=== PATIENT | female | born 1990 | race Two or more races ===

== ENCOUNTER 2017-10-11 12:18 | Emergency (ER) | payer MEDICAID ==
[~2017-10-11] VITALS: Ht 172.7 cm; Wt 104.3 kg
[~2017-10-11 12:18] MED LIST: ACYCLOVIR400 MG ORAL; METHYLDOPA250 MG PO; NKM
[2017-10-11 12:30] VITALS: BP 148/74
[2017-10-11] MEDS ORDERED: IBUPROFEN600 MG ORAL (13:07)
[2017-10-11 13:12] VITALS: BP 155/75
--- NOTE | 2017-10-11 21:36 | Emergency Room Report ---
History of Present Illness General Chief Complaint: Pain Source: Patient Present Illness HPI The patient is a 27-year-old female presenting for left heel pain. she states that this has been ongoing for the past one month. She denies any known injury to the area. She does admit to walking a lot at work. She denies any new footwear. Pain has progressively been getting worse and is now a 10 out of 10 dull ache. Does not radiate. Worse with walking. She denies other symptoms including numbness or tingling, calf pain, rash Allergies: Coded Allergies: No Known Allergies (Unverified , 08/05/13) Patient History Past Medical History: see triage record Pertinent Family History: none Reviewed Nursing Documentation: PMH: Agreed, PSxH: Agreed Nursing Documentation-PMH Hx Hypertension: Yes Review of Systems All Other Systems: negative except mentioned in HPI Physical Exam Vital Signs Date Time Temp Pulse Resp B/P (MAP) Pulse Ox O2 Delivery O2 Flow Rate FiO2 10/11/17 12:20 97.9 99 20 155/75 98 Room Air Sp02 EP Interpretation: reviewed, normal General Appearance: no apparent distress, alert, GCS 15, non-toxic Head: normocephalic, atraumatic Eyes: bilateral eye normal inspection, bilateral eye PERRL ENT: hearing grossly normal, normal voice Musculoskeletal: back normal, gait/station normal, normal range of motion, tender - TTP over the L calcaneus Neurologic: alert, oriented x3, responsive, motor strength/tone normal, sensory intact, speech normal Psychiatric: judgement/insight normal, memory normal, mood/affect normal, no suicidal/homicidal ideation Skin: normal color, no rash, warm/dry, well hydrated Medical Decision Making PA Attestation Dr. Prince is my supervising physician. Patient management was discussed with my supervising physician Diagnostic Impression: Primary Impression: Plantar fasciitis ER Course The patient is a 27-year-old female presenting for left heel pain. Ddx considered include but not limited to sprain/strain, fracture, contusion, plantar fasciitis, heel spur PE: NAD TTP over the L calcaneus. No edema. No skin changes. SILT. Full AROM of ankle intact. X-ray of the left foot is unremarkable Patient discharged home with prescription for pain medication and was given information including using ice, resting, orthotics FU with PMD Other X-Ray Diagnostic Results Other X-Ray Diagnostic Results : X-Ray ordered: L foot # of Views/Limited Vs Complete: 3 View Indication: Pain EP Interpretation: Yes PA Xray: Interpretation reviewed, by supervising MD, and agrees with findings. Interpretation: no dislocation, no soft tissue swelling, no fractures Impression: No acute disease Electronically Signed by: Osmar Johnson PA-C Last Vital Signs Date Time Temp Pulse Resp B/P (MAP) Pulse Ox O2 Delivery O2 Flow Rate FiO2 10/11/17 13:12 97.9 82 18 155/75 98 Room Air Status: improved Disposition: HOME, SELF-CARE Condition: Improved Scripts Ibuprofen* (MOTRIN*) 600 Mg Tablet 600 MG ORAL Q8H Y for For Pain, #30 TAB 0 Refills Prov: OSMAR JOHNSON 10/11/17 Referrals: NOT CHOSEN [facility]/,REFERRING (PCP) Patient Instructions: Plantar Fasciitis, RICE for Routine Care of Injuries Additional Instructions: I discussed my findings with the patient. All questions and concerns have been answered. Treatment and medication compliance have been addressed. I advised the patient that they need to follow up with PMD in 3-5 days. Return to ED if pain remains or worsens, numbness or tingling occurs, new rash is noticed, fever is noticed, or if needed for any reason. Patient verbalized understanding of discharge instructions. OSMAR JOHNSON Oct 11, 2017 21:36
--- NOTE | 2017-10-12 10:54 | Diagnostic Imaging Report ---
Indication: Pain Comparison: None Findings: 3 views of the left foot were obtained. No acute fractures, malalignment, erosions or periostitis are identified. Plantar calcaneal spur noted. Soft tissues are unremarkable. Impression: No acute findings
== END 2017-10-11 13:12 | disposition home or self-care (01) ==
LOC: EMR 12:30
DX: M72.2 Plantar fascial fibromatosis (principal); I10 Essential (primary) hypertension
CPT/HCPCS: 99283

== ENCOUNTER 2018-12-13 14:17 | Emergency (ER) | payer MEDICAID ==
[~2018-12-13] VITALS: Ht 180.3 cm; Wt 113.4 kg
[~2018-12-13 14:17] MED LIST changes: +IBUPROFEN600 MG ORAL
[2018-12-13 14:25] VITALS: BP 146/78
--- NOTE | 2018-12-13 14:30 | NUR ---
ED Nurse Note: Patient walked in to ED c/o left upper lip bump for 2 days. per pt, pt had dry cough and fever before bump.
--- NOTE | 2018-12-13 15:25 | Emergency Room Report ---
History of Present Illness General Chief Complaint: Skin Rash/Abscess Source: Medical Record Present Illness HPI 28-year-old female presents emergency department complaining of 2/10 in severity painful "burning" blisters on the left side of the upper lip 2 days that have been progressive. Patient also reports some paresthesias in that area she states she recently had some upper respiratory symptoms and describes having a cough, nasal congestion and rhinorrhea. Patient reports he had subjective fevers and chills that have been resolving. She denies history of immunocompromise she denies history of STI or herpes. Patient denies history of cold sores in the past. Pt. denies fevers, chills or swollen tender lymph nodes. Denies lesions/rashes elsewhere on the body. Denies new medications or body washes or creams. Denies swelling of the lips, tongue , throat or airway. Denies wheezing, or shortness of breath. Denies recent travel, recent illness or ill contacts. denies blisters, oral lesions, or sloughing of the skin Allergies: Coded Allergies: No Known Allergies (Unverified , 08/05/13) Patient History Past Medical History: see triage record Past Surgical History: none Pertinent Family History: none Last Menstrual Period: 11/18/18 Now: No Reviewed Nursing Documentation: PMH: Agreed; PSxH: Agreed Nursing Documentation-PMH Past Medical History: No History, Except For Hx Hypertension: Yes Review of Systems All Other Systems: negative except mentioned in HPI Physical Exam Vital Signs Date Time Temp Pulse Resp B/P (MAP) Pulse Ox O2 Delivery O2 Flow Rate FiO2 12/13/18 14:20 99.0 84 18 146/78 97 Room Air Sp02 EP Interpretation: reviewed, normal General Appearance: no apparent distress, alert, GCS 15, non-toxic Head: normocephalic, atraumatic Eyes: bilateral eye normal inspection, bilateral eye PERRL ENT: hearing grossly normal, normal voice, other Neck: full range of motion Respiratory: chest non-tender, lungs clear, normal breath sounds, speaking full sentences Cardiovascular #1: regular rate, rhythm Musculoskeletal: gait/station normal, normal range of motion, non-tender Neurologic: alert, oriented x3, responsive, motor strength/tone normal, sensory intact, speech normal, grossly normal Psychiatric: judgement/insight normal Skin: normal color, warm/dry, well hydrated, rash Medical Decision Making PA Attestation Dr. kyle is my supervising Physician whom patient management has been discussed with. Diagnostic Impression: Primary Impression: Cold sore ER Course 28-year-old female presents emergency department complaining of 2/10 in severity painful "burning" blisters on the left side of the upper lip 2 days that have been progressive. Patient also reports some paresthesias in that area she states she recently had some upper respiratory symptoms and describes having a cough, nasal congestion and rhinorrhea. Patient reports he had subjective fevers and chills that have been resolving. She denies history of immunocompromise she denies history of STI or herpes. Patient denies history of cold sores in the past. Pt. denies fevers, chills or swollen tender lymph nodes. Denies lesions/rashes elsewhere on the body. Denies new medications or body washes or creams. Denies swelling of the lips, tongue , throat or airway. Denies wheezing, or shortness of breath. Denies recent travel, recent illness or ill contacts. denies blisters, oral lesions, or sloughing of the skin Ddx considered but are not limited to mucositis, herpes simplex, HFM, SJS, Vital signs: are WNL, pt. is afebrile H&PE are most consistent with herpes simplex no evidence of secondary infection. ORDERS: none required at this time, the diagnosis is clinical ED INTERVENTIONS: None required at this time. DISCHARGE: At this time pt. is stable for d/c to home. Will provide printed patient care instructions, and any necessary prescriptions. Care plan and follow up instructions have been discussed with the patient prior to discharge. 28-year-old female presents emergency department complaining of 2/10 in severity painful "burning" blisters on the left side of the upper lip 2 days that have been progressive. Patient also reports some paresthesias in that area she states she recently had some upper respiratory symptoms and describes having a cough, nasal congestion and rhinorrhea. Patient reports he had subjective fevers and chills that have been resolving. She denies history of immunocompromise she denies history of STI or herpes. Patient denies history of cold sores in the past. Pt. denies fevers, chills or swollen tender lymph nodes. Denies lesions/rashes elsewhere on the body. Denies new medications or body washes or creams. Denies swelling of the lips, tongue , throat or airway. Denies wheezing, or shortness of breath. Denies recent travel, recent illness or ill contacts. denies blisters, oral lesions, or sloughing of the skin Last Vital Signs Date Time Temp Pulse Resp B/P (MAP) Pulse Ox O2 Delivery O2 Flow Rate FiO2 12/13/18 14:20 99.0 84 18 146/78 97 Room Air Disposition: HOME, SELF-CARE Condition: Stable Referrals: NOT CHOSEN [facility]/MD,REFERRING (PCP) Patient Instructions: Cold Sore, [id number] Additional Instructions: Take medications as directed. Follow up with a Primary Care Provider in 3-5 days, even if your symptoms have resolved. --Please review list of primary care clinics, if you do not already have a primary care provider Return sooner to ED if new symptoms occur, or current symptoms become worse. - Please note that this Emergency Department Report was dictated using [id number] software, occasionally this can lead to erroneous entry secondary to interpretation by the dictation equipment. Ramona Kearney Dec 13, 2018 15:25
[2018-12-13] MEDS ORDERED: VALACYCLOVIR500 MG ORAL (15:27)
[2018-12-13 15:42] VITALS: BP 146/78
--- NOTE | 2018-12-13 15:42 | NUR ---
ER DISCHARGE NOTE: Patient is cleared to be discharged per MAO SALDAÑA, pt is aox4, on room air, with stable vital signs. pt was given dc and prescription instructions, pt was able to verbalize understanding, pt id band removed without complications. pt is able to ambulate with steady gait. pt took all belongings.
== END 2018-12-13 15:42 | disposition home or self-care (01) ==
LOC: EMR 15:02
DX: B00.1 Herpesviral vesicular dermatitis (principal); R05 Cough; I10 Essential (primary) hypertension; R50.9 Fever, unspecified
CPT/HCPCS: 99282